=== PATIENT | male | born 1980 | race Caucasian/White ===

== ENCOUNTER 2018-11-08 07:06 | Emergency (ER) | payer MEDICAID ==
[~2018-11-08] VITALS: Ht 172.7 cm; Wt 105.0 kg
--- NOTE | 2018-11-08 07:17 | NUR ---
38 Y/O MALE BIB AMBULANCE AND [employer] ON LEGAL HOLD WITH [facility]. LEGAL HOLD WAS PLACED BY [employer]. PER REPORT PT HAD ARGUMENT WITH HIS EX GIRLFRIEND, WHO IS THE MOTHER OF HIS SON. TEXTS WERE SENT TO THE EX GIRLFRIEND STATING HE WAS GOING TO HARM HIMSELF AND HIS SON. PER [employer] THE TEXT SAID HE WAS GOING TO HANG HIMSELF IN FRONT OF HIS 5 Y/O SON. OTHER TEXTS STATES HE WAS GOING TO KILL HIMSELF AND HIS SON. PER [employer], THE TEXT MESSAGES CORRELATED. PT COMING OUT OF ROOM WHILE GETTING REPORT STATING "I NEVER SAID I WAS GOING TO HURT MY SON. I SAID I WAS GOING TO HURT MYSELF, NOT MY SON."
--- NOTE | 2018-11-08 07:21 | NUR ---
PT REFUSING TO UNDRESS AND FOLLOW SI POLICY. PT EDUCATED REGARDING HOW THE POLICY WORKS AT [facility]. PT STILL REFUSING TO CHANGE.
--- NOTE | 2018-11-08 08:08 | NUR ---
UA WALKED TO LAB.
[2018-11-08] MEDS ORDERED: METHADONE (08:09)
[2018-11-08 08:33] LABS: BASOPHILS # (AUTO) 0.05 x10^3/uL (0-0.1); BASOPHILS % (AUTO) 1 % (0-1); EOSINOPHILS # (AUTO) 0.13 x10^3/uL (0-0.4); EOSINOPHILS % (AUTO) 2 % (1-7); LYMPHOCYTES # (AUTO) 1.92 x10^3/uL (1-3.4); LYMPHOCYTES % (AUTO) 33 % (22-44); MD NO; MEAN CORPUSCULAR HEMOGLOBIN 28.9 pg (27.5-34.5); MEAN CORPUSCULAR HGB CONC 33.7 g/dL (33.2-36.2); MEAN CORPUSCULAR VOLUME 85.9 fL (81-97); MEAN PLATELET VOLUME 11.3 fL (7.4-10.4); MONOCYTES # (AUTO) 0.57 x10^3/uL (0.2-0.8); MONOCYTES % (AUTO) 10 % (2-9); NEUTROPHILS # (AUTO) 3.11 x10^3/uL (1.8-6.8); NEUTROPHILS % (AUTO) 54 % (42-75); PLATELET COUNT 143 x10^3/uL (130-400); RED CELL DISTRIBUTION WIDTH 14.6 % (9.4-14.8)
[2018-11-08 08:42] LABS: AMPHETAMINE SCREEN, URINE Positive (Negative); BARBITURATE SCREEN, URINE Negative (Negative); BENZODIAZEPINE SCREEN, URINE Negative (Negative); CANNABINOID SCREEN, URINE Negative (Negative); COCAINE SCREEN, URINE Negative (Negative); METHADONE SCREEN, URINE Positive (Negative); OPIATE SCREEN, URINE Negative (Negative)
--- NOTE | 2018-11-08 08:42 | NUR ---
PT SLEEPING ON GURNEY. NO ACUTE DISTRESS NOTED. ALL SAFETY MEASURES OBTAINED. WILL CONTINUE TO MONITOR.
[2018-11-08 08:44] LABS: ALBUMIN 3.2 g/dL (3.4-5.0); ANION GAP 6 mmol/L (5-15); CHLORIDE 107 mmol/L (98-107); CREATININE 0.84 mg/dL (0.7-1.3)
[2018-11-08 08:45] LABS: SALICYLATE LEVEL < 1.7 mg/dL (2.8-20.0)
[2018-11-08 08:49] LABS: ACETAMINOPHEN < 2 mcg/mL (10-30)
--- NOTE | 2018-11-08 08:49 | NUR ---
MOTHER HERE TO VISIT PATIENT.
--- NOTE | 2018-11-08 09:09 | NUR ---
Report from [facility]. Awaiting for tele [facility].
--- NOTE | 2018-11-08 10:32 | NUR ---
SPOKE WITH SOC. STATES HE DEEMS PT SAFE TO D/C AT THIS TIME. ERMD AWARE.
[2018-11-08 11:04] VITALS: BP 142/90
== END 2018-11-08 11:06 | disposition home or self-care (01) ==
LOC: ED 08:47
DX: F32.9 Major depressive disorder, single episode, unspecified (principal); F41.1 Generalized anxiety disorder; Z86.19 Personal history of other infectious and parasitic diseases; Z87.891 Personal history of nicotine dependence
CPT/HCPCS: 36415; 80048; 80307; 80329; 82040; 85025; 99284; G0480